=== PATIENT | male | born 1975 | race American Indian/Alaskan Native ===

== ENCOUNTER 2016-11-22 01:00 | Emergency (ER) | payer OTHER, MEDICAID ==
[2016-11-22] MEDS ORDERED: TORADOL IM ONE (02:54)
[2016-11-22] MEDS ORDERED: FLEXERIL PO ONE (02:54)
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
[2016-11-22] MEDS ORDERED: NORCO 5/325 PO ONE (03:51)
[2016-11-22 04:21] VITALS: BP 130/89
== END 2016-11-22 04:27 | disposition home or self-care (01) ==
LOC: ED 01:00
DX: M54.2 Cervicalgia (principal); M54.6 Pain in thoracic spine; I10 Essential (primary) hypertension; F12.90 Cannabis use, unspecified, uncomplicated; F17.200 Nicotine dependence, unspecified, uncomplicated; Z88.0 Allergy status to penicillin; V87.7XXA Person injured in collision between other specified motor vehicles (traffic), initial encounter; Y93.89 Activity, other specified; Y99.9 Unspecified external cause status; Y92.410 Unspecified street and highway as the place of occurrence of the external cause
CPT/HCPCS: 96372; 99282; J1885